=== PATIENT | female | born 1995 | race Caucasian/White ===

== ENCOUNTER 2019-08-14 00:35 | Emergency (ER) | payer SELFPAY ==
[~2019-08-14] VITALS: Ht 160 cm; Wt 76.2 kg
[2019-08-14 00:39] VITALS: Ht 160 cm; Wt 76.2 kg
[2019-08-14 01:52] VITALS: BP 131/62
== END 2019-08-14 01:52 | disposition home or self-care (01) ==
LOC: ED 00:35
DX: N30.00 Acute cystitis without hematuria (principal); I10 Essential (primary) hypertension